=== PATIENT | male | born 1975 | race Caucasian/White ===

== ENCOUNTER → 2019-05-06 | Outpatient (CLI) | payer OTHER ==
--- NOTE | 2019-05-06 12:03 | Diagnostic Imaging Report ---
PROCEDURE: CT sinuses without contrast TECHNIQUE: Multiple contiguous axial images were obtained through the sinuses without the use of intravenous contrast. Coronal and sagittal reformations were then performed. Auto Exposure Controls were utilized during the CT exam to meet ALARA standards for radiation dose reduction. INDICATION: Facial swelling. COMPARISON: None. FINDINGS: Large periapical lucency about the roots of the right first and second maxillary premolars including a cortical defect laterally. There is prominence of the overlying soft tissues with mild central low attenuation but no definite organized fluid collection on this noncontrast exam. This periapical lucency also communicates with mucosal thickening in the floor of the right maxillary sinus. The paranasal sinuses are otherwise clear. The ostiomeatal units and frontal recesses are patent. Mild leftward bowing of the nasal septum. No large morgan bullosa. No other large periapical lucencies about the maxillary or visualized mandibular dentition are identified. The mastoids and middle ears are clear. Skull base is intact. Postoperative changes in the left C3 lamina. Visualized orbits are unremarkable. IMPRESSION: Periapical lucency about the right first and second maxillary premolars and adjacent soft tissue swelling consistent with cellulitis with no definite abscess formation on this noncontrast exam. Dictated by: Dictated on workstation # [id number]
== END ==
LOC: RAD 10:59
PROVIDERS: ATTEND Pediatrics
DX: J34.89 Other specified disorders of nose and nasal sinuses (principal); R22.0 Localized swelling, mass and lump, head; Z98.890 Other specified postprocedural states
CPT/HCPCS: 70486

== ENCOUNTER → 2019-05-27 | Outpatient (CLI) | payer OTHER ==
[~2019-05-27] MED LIST: CATHETER FLUSH 10 ML SYR IV PRN; HOLD METFORMIN - RECEIVED CONTRAST 20 ML VIAL IV SCH; IOHEXOL 350 MG/ML 100 ML (OMNIPAQUE 350) VIAL IV ONE; NS 100 ML (IVPB) BAG IV ONE
--- NOTE | 2019-05-27 14:06 | Diagnostic Imaging Report ---
PROCEDURE: CT abdomen and pelvis with contrast. TECHNIQUE: Multiple contiguous axial images were obtained through the abdomen and pelvis after administration of intravenous contrast. Auto Exposure Controls were utilized during the CT exam to meet ALARA standards for radiation dose reduction. INDICATION: Upper abdominal pain with radiation to each side. Symptoms x2 months. CORRELATION STUDY: None. FINDINGS: LOWER THORAX: Clear. LIVER: Borderline in size. 6 mm hypervascularity in the anteromedial segment of left lobe of the liver, nonspecific. Otherwise, uniform attenuation throughout the liver parenchyma. GALLBLADDER: Present and unremarkable. No bile duct dilatation. SPLEEN: Unremarkable. PANCREAS: Unremarkable. ADRENAL GLANDS: Unremarkable. KIDNEYS: Normal configuration. No calcification or obstruction. ABDOMINAL AORTA: Unremarkable, nonaneurysmal. GASTROINTESTINAL TRACT: Stomach is largely collapsed with resultant wall thickening. Small bowel with a few mildly prominent fluid-filled loops of bowel. No transition or findings to suggest obstruction. Moderate severity fecal retention throughout the colon. No findings to suggest acute appendicitis. No abdominal ascites or free air. URINARY BLADDER: Unremarkable. REPRODUCTIVE: A few calcifications within the prostate. OSSEOUS STRUCTURES: Chronically anteriorly wedged T2 vertebral body. OTHER: None. IMPRESSION: 1. Negative for acute abnormality of the abdomen or pelvis. 2. Borderline hepatomegaly. Small 6 mm hypervascular enhancing nodule in the anterior left lobe. Hypervascular metastasis would be difficult to exclude. Dictated by: Dictated on workstation # [id number]
== END ==
LOC: RAD FS 08:25
PROVIDERS: ATTEND Pediatrics
DX: K76.89 Other specified diseases of liver (principal); R16.0 Hepatomegaly, not elsewhere classified; R10.10 Upper abdominal pain, unspecified
CPT/HCPCS: 74177